=== PATIENT | female | born 1970 | race Caucasian/White ===

== ENCOUNTER 2021-03-17 12:09 | Observation (INO) | payer MEDICARE, OTHER ==
[~2021-03-17] VITALS: Ht 165.1 cm; Wt 139.3 kg
[2021-03-17] MEDS ORDERED: RIVA20TA PO (13:18)
[2021-03-17] MEDS ORDERED: ONDA4TAB7 PO (13:18)
[2021-03-17] MEDS ORDERED: AMIT25TA PO (13:18)
[2021-03-17] MEDS ORDERED: OMEP-110 PO (13:18)
[2021-03-17] MEDS ORDERED: MORPHINE PO (13:18)
[2021-03-17] MEDS ORDERED: AMPH30TA2 PO (13:18)
[2021-03-17 13:21] VITALS: BP 134/73
[2021-03-17] MEDS ORDERED: CHLORHEXIDINE 15 ML UDC ONE (13:25)
[2021-03-17] MEDS ORDERED: LACTATED RINGERS 1,000 ML IV SCH (13:30)
[2021-03-17] MEDS ORDERED: PLEASE ENTER HEIGHT AND WEIGHT MC SCH (13:30)
[2021-03-17] MEDS ORDERED: CHLORHEXIDINE 15 ML UDC PO ONE (13:30)
[2021-03-17 13:34] LABS: BASOPHILS % (AUTO) 1 % (0-1); EOSINOPHILS % (AUTO) 2 % (1-7); LYMPHOCYTES % (AUTO) 19 % (22-44); MEAN CORPUSCULAR HEMOGLOBIN 27.3 pg (27.0-34.8); MEAN CORPUSCULAR HGB CONC 32.6 g/dL (32.4-35.8); MEAN PLATELET VOLUME 8.1 fL (7.4-10.4); MONOCYTES % (AUTO) 6 % (2-9); NEUTROPHILS % (AUTO) 71 % (42-75); PLATELET COUNT 282 x10^3/uL (130-400); RED BLOOD COUNT 4.02 x10^6/uL (3.82-5.3); RED CELL DISTRIBUTION WIDTH 17.6 % (9.6-15.2)
[2021-03-17] MEDS ORDERED: FENTANYL PF 100 MCG/2ML ONE ×3 (13:41→16:53)
[2021-03-17] MEDS ORDERED: MIDAZOLAM 1 MG/ML, 2ML ONE (13:41)
[2021-03-17 13:45] LABS: INTERNATIONAL NORMALIZED RATIO 0.99 (0.93-1.1); PROTHROMBIN TIME 10.6 Seconds (9.6-11.5)
[2021-03-17] MEDS ORDERED: EPINEPHRINE 1 MG/ML, 1ML ONE (14:59)
[2021-03-17] MEDS ORDERED: BUPIVACAINE/PF 0.5% ONE (14:59)
[2021-03-17] MEDS ORDERED: ALBUTEROL SULFATE 2.5 MG/3 ML NPPB PRN (15:30)
[2021-03-17] MEDS ORDERED: PROMETHAZINE 25 MG/ML, 1ML IVPush PRN (15:30)
[2021-03-17] MEDS ORDERED: LABETALOL 5MG/ML, 20ML IV PRN (15:30)
[2021-03-17] MEDS ORDERED: HYDROmorphone 1 MG/ML, 1ML INJ IVPush PRN (15:30)
[2021-03-17] MEDS ORDERED: ACETAMINOPHEN 325 MG TABLET PO PRN (15:30)
[2021-03-17] MEDS ORDERED: MEPERIDINE/PF 25MG/0.5ML IVPush PRN (15:30)
[2021-03-17] MEDS ORDERED: OXYcodone 5 MG/5 ML ORAL.SOL UDC PO PRN (15:30)
[2021-03-17] MEDS ORDERED: MIDAZOLAM 1 MG/ML, 2ML IV PRN (15:30)
[2021-03-17] MEDS ORDERED: FENTANYL PF 100 MCG/2ML IV PRN (15:30)
[2021-03-17] MEDS ORDERED: PROPOFOL 10 MG/ML, 20ML ONE (15:57)
[2021-03-17] MEDS ORDERED: CEFAZOLIN 1,000 MG ONE ×2 (15:57)
[2021-03-17] MEDS ORDERED: ONDANSETRON 2MG/ML, 2ML ONE (15:57)
[2021-03-17] MEDS ORDERED: DEXAMETHASONE 4 MG/ML, 1ML ONE (15:57)
[2021-03-17] MEDS ORDERED: LIDOCAINE-MPF 2% ,5ML ONE (15:57)
[2021-03-17] MEDS ORDERED: OXYcodone 5 MG/5 ML ORAL.SOL UDC ONE (16:53)
[2021-03-18] MEDS ORDERED: MORPHINE SULFATE 4 MG/ML, 1ML IVPush PRN
[2021-03-18] MEDS ORDERED: ONDANSETRON 4 MG TABLET PO PRN
[2021-03-18 00:18] VITALS: BP 112/71
[2021-03-18 03:47] VITALS: BP 114/67
[2021-03-18] MEDS: OXYcodone 5 MG/5 ML ORAL.SOL UDC PO PRN ×3 (04:26→12:48)
[2021-03-18 08:00] VITALS: BP 103/64
[2021-03-18] MEDS ORDERED: OMEPRAZOLE 20 MG CAPSULE.DR PO SCH (08:30)
[2021-03-18] MEDS ORDERED: OMEPRAZOLE 20 MG CAPSULE.DR ONE (08:41)
[2021-03-18 13:47] VITALS: BP 111/68
[2021-03-18] MEDS ORDERED: RIVAROXABAN 20 MG TABLET PO SCH (18:00)
[2021-03-18] MEDS ORDERED: AMITRIPTYLINE 25 MG TABLET PO SCH (21:00)
== END 2021-03-18 15:05 | disposition home or self-care (01) ==
LOC: OUT 12:09 → 4NE 18:08 → OUT 22:00 → 4NE 23:52 → OUT 03-18 21:57
PROVIDERS: ADMIT Orthopaedic Surgery; ATTEND Orthopaedic Surgery
DX: S52.122A Displaced fracture of head of left radius, initial encounter for closed fracture (principal); Z20.822 Contact with and (suspected) exposure to COVID-19; S52.121A Displaced fracture of head of right radius, initial encounter for closed fracture; S42.132A Displaced fracture of coracoid process, left shoulder, initial encounter for closed fracture; M81.0 Age-related osteoporosis without current pathological fracture; I25.10 Atherosclerotic heart disease of native coronary artery without angina pectoris; J45.909 Unspecified asthma, uncomplicated; E66.01 Morbid (severe) obesity due to excess calories; K21.9 Gastro-esophageal reflux disease without esophagitis; F41.8 Other specified anxiety disorders; I25.2 Old myocardial infarction; Z79.899 Other long term (current) drug therapy; Z86.73 Personal history of transient ischemic attack (TIA), and cerebral infarction without residual deficits; Z86.711 Personal history of pulmonary embolism; Z87.891 Personal history of nicotine dependence
CPT/HCPCS: 24130; 24343; 24586; 24675; 36415; 73070; 85025; 85610; 85730; 87635; 93005; 97162; 97165; C1713; G0378; J0171; J0690; J1100; J2250; J2405; J2704; J3010; J3490; J7120; S0020; 76000